=== PATIENT | male | born 1985 | race Caucasian/White ===

== ENCOUNTER 2018-07-23 04:07 | Emergency (ER) | payer MEDICAID ==
[~2018-07-23] VITALS: Ht 185.4 cm; Wt 93.2 kg
--- NOTE | 2018-07-23 04:36 | NUR ---
PT REQUESTING TO HAVE AN IV AND GET HYDRATED BECAUSE "IT IS A LOT FASTER". PT WAS GIVEN A PITCHER OF ICE WATER BY AND REQUESTED TO TRY AN HYDRATE ORALLY.
--- NOTE | 2018-07-23 04:55 | NUR ---
DR. JOHNSON TALKING WITH PT. HE STATES HE NEEDS TO DRINK WATER AND THAT AN IV AT THIS TIME IS NOT INDICATED IF HE IS ABLE TO DRINK THE WATER.
--- NOTE | 2018-07-23 05:36 | NUR ---
PT ONLY ABLE TO DRINK 200 CCS OF HIS WATER. HE REPORTS NO NAUSEA AND STATES" i JUST CANT DRINK A LOT OF WATER RIGHT NOW". DR. JOHNSON ORDERING PIV AND 1 LITER NS. PT WITH HR 100, OTHERWISE VSS.
[2018-07-23] MEDS ORDERED: normal saline 1000ml 1,000 ML IV ONE (05:40)
--- NOTE | 2018-07-23 06:12 | NUR ---
PT READY FOR DC HIS LITER OF FLUID IS COMPLETED. PT STATES "I DONT FEEL LIKE I CAN DISCHARGE...I FEEL LIKE IM GOING TO FAINT RIGHT NOW". PT STANDING AT BEDSIDE AND TOOK A FEW STEPS AND STATES HE IS WORRIED THAT HE MIGHT FALL AND HE IS WEAK.
[2018-07-23] MEDS ORDERED: LORazepam 1 MG tablet PO ONE (06:25)
--- NOTE | 2018-07-23 06:26 | NUR ---
dr. kathleen updated that Pt reporting he does not feel like he should be discharged at this time "i feel worse" md looked in on pt and ordering ativan. Report to kirstin lima.
--- NOTE | 2018-07-23 06:38 | NUR ---
pt appears anxious requesting a "banana bag" saying I feel dehydrated and i don't feel right. educated that medication given will help him to calm down, does not verbalize understanding.
[2018-07-23 08:05] VITALS: BP 140/84
== END 2018-07-23 08:07 | disposition home or self-care (01) ==
LOC: ER 04:08
DX: F41.9 Anxiety disorder, unspecified (principal); R42 Dizziness and giddiness; F15.10 Other stimulant abuse, uncomplicated
CPT/HCPCS: 93005; 96360; 99284; J7030